=== PATIENT | female | born 1945 | race Caucasian/White ===

== ENCOUNTER 2017-09-11 07:52 | Emergency (ER) | payer MEDICARE, OTHER ==
[2017-09-11] MEDS ORDERED: methylPREDNISolone Sodium Succinate 125 MG/2 ML SDV IVPUSH ONE (08:14)
[2017-09-11] MEDS ORDERED: diphenhydrAMINE 50 MG/ML SDV IVPUSH ONE (08:14)
[2017-09-11] MEDS ORDERED: Sodium Chloride 0.9% 1,000 ML IV SCH (08:15)
[2017-09-11] MEDS ORDERED: EPINEPHrine 1 MG/ML SDV SUBCUT ONE ×2 (08:20→10:19)
--- NOTE | 2017-09-11 08:20 | EDM.PDOC ---
ED HPI GENERAL MEDICAL PROBLEM - General Chief Complaint: Allergic Reaction Stated Complaint: REACTION TO MEDS Time Seen by Provider: 09/11/17 08:18 Source of Information: Reports: Patient History Limitations: Reports: No Limitations - History of Present Illness INITIAL COMMENTS - FREE TEXT/NARRATIVE: Pt was seen 3 days ago and she had no idea at that time what she reacted to. She broke in hives and she was placed on predisone. She has had 3\3 doses of the predisone and she woke up with swelling in her throat, swelling in her upper lip and generalized hives. Onset: Other ( started 3 days ago. ) Duration: Hour(s):, Waxing/Waning Location: Reports: Generalized Associated Symptoms: Reports: Shortness of Breath - Related Data Allergies Allergy/AdvReac Type Severity Reaction Status Date / Time Iodinated Contrast- Oral and Allergy Severe Anaphylactic Verified 09/11/17 08:05 IV Dye Shock [Iodinated Contrast Media - IV Dye] alcohol Allergy Cannot Verified 09/11/17 08:05 Remember aspirin Allergy Cannot Verified 09/11/17 08:05 Remember demeclocycline HCl Allergy Rash Verified 09/11/17 08:05 [From Declomycin] hydrochlorothiazide Allergy Cannot Verified 09/11/17 08:05 Remember Penicillins Allergy Rash Verified 09/11/17 08:05 Sulfa (Sulfonamide Allergy Rash Verified 09/11/17 08:05 Antibiotics) tetracycline Allergy Rash Verified 09/11/17 08:05 triamterene Allergy Cannot Verified 09/11/17 08:05 Remember adhesive AdvReac Blisters Verified 09/11/17 08:05 Home Meds: Home Meds Multivitamin with Minerals [Multiple Vitamin] 1 tab PO DAILY 12/17/14 [History] amLODIPine [Norvasc] 1 tab PO DAILY 09/11/17 [History] predniSONE 2 tab PO DAILY 09/11/17 [History] ED ROS ALLERGIC REACTION - Review of Systems Review Of Systems: See Below Constitutional: Reports: No Symptoms HEENT: Reports: Throat Swelling, Other ( swelling of the tongue. ) Cardiovascular: Reports: No Symptoms Endocrine: Reports: No Symptoms GI/Abdominal: Reports: No Symptoms : Reports: No Symptoms Musculoskeletal: Reports: No Symptoms Skin: Reports: Rash, Other ( pt has hives over her entire body. ) Neurological: Reports: No Symptoms ED EXAM GENERAL NO PERIP PULSE - Physical Exam Exam: See Below Text/Narrative:: pt started having hives 2 days ago. She was placed on predisone and today she was much worse. She had alot of swelling in her upper lip aand swelling of her tongue, She had swelling and edemaa in the tonsilar area. She has no new meds. She does not know of any new contacts. Exam Limited By: No Limitations General Appearance: Alert, Moderate Distress, Other (pupils are equal and reactive. ) Ears: Normal TMs Nose: Normal Inspection Throat/Mouth: Other (upper lip is quite swollen, tongue is swollen, and there is edema in\ the back of her throat. ) Head: Atraumatic Neck: Normal Inspection Respiratory/Chest: No Respiratory Distress, Other ( She did feel quite tight in the throat) Cardiovascular: Regular Rate, Rhythm GI/Abdominal: Soft, Non-Tender (Female) Exam: Deferred Rectal (Female) Exam: Deferred Back Exam: Normal Inspection Extremities: Normal Inspection Neurological: Alert, Oriented, Normal Cognition Psychiatric: Normal Affect Skin Exam: Rash, Other ( pt has hives everywhere) Course - Vital Signs Last Recorded V/S: Last Vital Signs Temp 36.1 C 09/11/17 09:05 Pulse 68 09/11/17 12:13 Resp 12 09/11/17 12:13 BP 150/71 H 09/11/17 12:13 Pulse Ox 94 L 09/11/17 12:13 - Orders/Labs/Meds Orders: Active Orders 24 hr Category Date Time Status UA W/MICROSCOPIC [URIN] Urgent Lab 09/11/17 09:42 Ordered Sodium Chloride 0.9% [Normal Saline] 1,000 ml Med 09/11/17 08:15 Active IV ASDIRECTED Medication Orders Sodium Chloride (Normal Saline) 1,000 mls @ 999 mls/hr IV ASDIRECTED LATISHA Last Admin: 09/11/17 08:47 Dose: 999 mls/hr Labs: Laboratory Tests 09/11/17 09/11/17 09/11/17 Range/Units 08:17 08:33 09:42 WBC 17.1 H (4.5-11.0) K/uL RBC 4.71 (3.30-5.50) M/uL Hgb 14.6 (12.0-15.0) g/dL Hct 42.7 (36.0-48.0) % MCV 91 (80-98) fL MCH 31 (27-31) pg MCHC 34 (32-36) % Plt Count 273 (150-400) K/uL Neut % (Auto) 77 H (36-66) % Lymph % (Auto) 16 L (24-44) % Hayes % (Auto) 7 H (2-6) % Eos % (Auto) 0 L (2-4) % Baso % (Auto) 0 (0-1) % Sodium 142 (140-148) mmol/L Potassium 3.4 L (3.6-5.2) mmol/L Chloride 105 (100-108) mmol/L Carbon Dioxide 26 (21-32) mmol/L Anion Gap 14.4 H (5.0-14.0) mmol/L BUN 25 H (7-18) mg/dL Creatinine 1.0 (0.6-1.0) mg/dL Est Cr Clr Drug Dosing 39.93 mL/min Estimated GFR (MDRD) 54 L (>60) Glucose 97 (74-106) mg/dL Calcium 8.4 L (8.5-10.1) mg/dL Total Bilirubin 0.6 (0.2-1.0) mg/dL AST 22 (15-37) U/L ALT 34 (12-78) U/L Alkaline Phosphatase 100 (46-116) U/L Total Protein 6.5 (6.4-8.2) g/dL Albumin 3.3 L (3.4-5.0) g/dL Globulin 3.2 (2.3-3.5) g/dL Albumin/Globulin Ratio 1.0 L (1.2-2.2) Urine Color Yellow Urine Appearance Clear Urine pH 5.0 (4.5-8.0) Ur Specific [place] 1.010 (1.008-1.030) Urine Protein Negative (NEGATIVE) mg/dL Urine Glucose (UA) Normal (NEGATIVE) mg/dL Urine Ketones Negative (NEGATIVE) mg/dL Urine Occult Blood Negative (NEGATIVE) Urine Nitrite Negative (NEGATIVE) Urine Bilirubin Negative (NEGATIVE) Urine Urobilinogen Normal (NORMAL) mg/dL Ur Leukocyte Esterase Negative (NEGATIVE) Urine RBC Not seen (0-5) Urine WBC Not seen (0-5) Ur Epithelial Cells Rare Amorphous Sediment Not seen Urine Bacteria Not seen Urine Mucus Not seen Meds: Medications Generic Name Dose Route Start Last Admin Trade Name Brad PRN Reason Stop Dose Admin Sodium Chloride 1,000 mls @ 999 mls/hr 09/11/17 08:15 09/11/17 08:47 Normal Saline IV 999 mls/hr ASDIRECTED LATISHA Administration Discontinued Medications Generic Name Dose Route Start Last Admin Trade Name Brad PRN Reason Stop Dose Admin Diphenhydramine HCl 25 mg 09/11/17 08:14 09/11/17 08:36 Benadryl IVPUSH 09/11/17 08:15 25 mg ONETIME ONE Administration Diphenhydramine HCl 25 mg 09/11/17 09:30 09/11/17 09:29 Benadryl PO 09/11/17 09:31 25 mg ONETIME ONE Administration Epinephrine HCl 0.2 mg 09/11/17 08:20 09/11/17 08:40 Adrenalin SUBCUT 09/11/17 08:21 0.2 mg ONETIME ONE Administration Epinephrine HCl 0.2 mg 09/11/17 10:19 09/11/17 10:28 Adrenalin SUBCUT 09/11/17 10:20 0.2 mg ONETIME ONE Administration Labetalol HCl 20 mg 09/11/17 09:14 09/11/17 09:29 Normodyne IVPUSH 09/11/17 09:15 20 mg NOW ONE Administration Protocol Methylprednisolone Sodium Succinate 125 mg 09/11/17 08:14 09/11/17 08:36 Solu-Medrol IVPUSH 09/11/17 08:15 125 mg ONETIME ONE Administration - Re-Assessments/Exams Free Text/Narrative Re-Assessment/Exam: 09/11/17 11:49 pt was given epi .2 x two. She was given solumedrol 125 mg iv. a total of benadryl 50mg. She is doing better. The tongue swelling is going down as the swelling in the upper lip is going down. \I feel there is a good possibility that she has developed the angioedea related to the amlodopine 09/11/17 12:41 Departure - Departure Time of Disposition: 12:37 Disposition: Home, Self-Care 01 Condition: Fair Clinical Impression: Allergic reaction caused by a drug - Discharge Information Referrals: Adeel Alarcon MD [Primary Care Provider] - Forms: ED Department Discharge Care Plan Goals: stop the amlodopine, cool pack\ lip area, benadryl 50mg q8h for the next 2 days, labetolol 100mg 1 tab daily, follow up appt with Dr Alarcon. predisone 20g 2 tabs for the next 2 days then 10ng 2 tabs daily for 2 more days. - My Orders Last 24 Hours: My Active Orders 09/11/17 08:15 Sodium Chloride 0.9% [Normal Saline] 1,000 ml IV ASDIRECTED 09/11/17 09:42 UA W/MICROSCOPIC [URIN] Urgent - Assessment/Plan Last 24 Hours: My Active Orders 09/11/17 08:15 Sodium Chloride 0.9% [Normal Saline] 1,000 ml IV ASDIRECTED 09/11/17 09:42 UA W/MICROSCOPIC [URIN] Urgent
[2017-09-11] MEDS ORDERED: diphenhydrAMINE 25 MG Cap PO ONE (09:13)
[2017-09-11] MEDS ORDERED: Labetalol 20 MG/4 ML Syringe IVPUSH ONE (09:14)
[2017-09-11] MEDS ORDERED: diphenhydrAMINE 25 MG/10 ML CUP PO ONE (09:30)
[2017-09-11 12:13] VITALS: BP 150/71
== END 2017-09-11 12:57 | disposition home or self-care (01) ==
LOC: JP.ED 07:52
DX: L50.0 Allergic urticaria (principal); T38.0X5A Adverse effect of glucocorticoids and synthetic analogues, initial encounter; Z91.041 Radiographic dye allergy status; Z88.6 Allergy status to analgesic agent; Z88.1 Allergy status to other antibiotic agents; Z88.0 Allergy status to penicillin; Z88.2 Allergy status to sulfonamides
CPT/HCPCS: 36415; 80053; 81001; 85025; 96361; 96372; 96374; 96375; 99285; A9270; J0171; J1200; J2930; J7030

== ENCOUNTER 2017-09-11 20:34 | Emergency (ER) | payer MEDICARE, OTHER ==
[2017-09-11] MEDS ORDERED: Sodium Chloride 0.9% 10 ML Syringe FLUSH PRN (21:12)
--- NOTE | 2017-09-11 21:17 | EDM.PDOC ---
ED HPI GENERAL MEDICAL PROBLEM - General Chief Complaint: Neurological Problem Stated Complaint: MED [facility] Time Seen by Provider: 09/11/17 21:05 Source of Information: Reports: Patient, EMS, Old Records, RN History Limitations: Reports: No Limitations - History of Present Illness INITIAL COMMENTS - FREE TEXT/NARRATIVE: 72 yo female presents via EMS after what sounds like a TIA. She has R sided weakness and says she really wasn't aware of where her R arm/hand were. Bystanders noted slurred speech. Was unable to intiate steps to walk. By the time EMS arrived these sx's were resolved. She has no hx of TIA or CVA. She reports allergy to ASA. Quit smoking 20 yrs ago. No hx of afib. Was here this morning for allergic rxn and had her BP med changed from amlodipine to labetolol and she was given prednisone. Her BP is usually in the 120's. Recalls no chest pain or other pains with her spell tonight. Onset: Today, Sudden Onset Date: 09/11/17 Onset Time: 20:30 Duration: Minutes: (5-10), Resolved Prior to Arrival Location: Reports: Head (altered speech), Upper Extremity, Right, Lower Extremity, Right Quality: Reports: Other (no pain) Severity: Moderate Improves with: Reports: Other (time) Worsens with: Reports: Other (unknown, BP elevated now from her norm. 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) (none) - Related Data Allergies Allergy/AdvReac Type Severity Reaction Status Date / Time Iodinated Contrast- Oral and Allergy Severe Anaphylactic Verified 09/11/17 20:52 IV Dye Shock [Iodinated Contrast Media - IV Dye] alcohol Allergy Cannot Verified 09/11/17 20:52 Remember amlodipine Allergy Facial Verified 09/11/17 20:52 Swelling aspirin Allergy Cannot Verified 09/11/17 20:52 Remember demeclocycline HCl Allergy Rash Verified 09/11/17 20:52 [From Declomycin] hydrochlorothiazide Allergy Cannot Verified 09/11/17 20:52 Remember Penicillins Allergy Rash Verified 09/11/17 20:52 Sulfa (Sulfonamide Allergy Rash Verified 09/11/17 20:52 Antibiotics) tetracycline Allergy Rash Verified 09/11/17 20:52 triamterene Allergy Cannot Verified 09/11/17 20:52 Remember adhesive AdvReac Blisters Verified 09/11/17 20:52 Home Meds: Home Meds Multivitamin with Minerals [Multiple Vitamin] 1 tab PO DAILY 12/17/14 [History] Clopidogrel Bisulfate [Plavix] 75 mg PO DAILY #30 tablet 09/11/17 [Rx] Labetalol [Normodyne] 09/11/17 [History] predniSONE 2 tab PO DAILY 09/11/17 [History] predniSONE [Prednisone] 09/11/17 [History] Past Medical History Cardiovascular History: Reports: Hypertension Respiratory History: Reports: Pneumonia, Recurrent Gastrointestinal History: Reports: Cholelithiasis 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: Musculoskeletal History: Reports: Fracture Dermatologic History: Reports: Other (See Below) Other Dermatologic History: rashes and hives from multiple allergies - Infectious Disease History Infectious Disease History: Reports: Chicken Pox, Hepatitis B, Measles, Mumps, Rubella - Past Surgical History GI Surgical History: Reports: Cholecystectomy Female Surgical History: Reports: Hysterectomy Social & Family History - Tobacco Use Smoking Status *Q: Never Smoker - Caffeine Use Caffeine Use: Reports: Coffee ED ROS GENERAL - Review of Systems Review Of Systems: See Below Constitutional: Reports: No Symptoms HEENT: Reports: No Symptoms Respiratory: Reports: No Symptoms Cardiovascular: Reports: No Symptoms Endocrine: Reports: No Symptoms GI/Abdominal: Reports: No Symptoms : Reports: No Symptoms Musculoskeletal: Reports: No Symptoms Skin: Reports: No Symptoms Neurological: Reports: Trouble Speaking, Difficulty Walking, Weakness (R sided) , Change in Speech, Gait Disturbance (unable to initiate walking) Psychiatric: Reports: No Symptoms ED EXAM, NEURO - Physical Exam Exam: See Below Exam Limited By: No Limitations General Appearance: Alert, WD/WN, No Apparent Distress Eye Exam: Right Eye: Papilledema, Bilateral Eye: EOMI, Normal Inspection, PERRL Ears: Normal External Exam, Normal Canal, Hearing Grossly Normal, Normal TMs Nose: Normal Inspection, Normal Mucosa, No Blood Throat/Mouth: Normal Inspection, Normal Lips, Normal Oropharynx, Normal Voice, No Airway Compromise Head Exam: Atraumatic, Normocephalic Neck: Normal Inspection, Supple, Non-Tender, Other (No bruits) Respiratory/Chest: No Respiratory Distress, Lungs Clear, Normal Breath Sounds, No Accessory Muscle Use Cardiovascular: Regular Rate, Rhythm, No Edema GI/Abdominal: Normal Bowel Sounds, Soft, Non-Tender, No Distention Neurological: Alert, Normal Mood/Affect, Normal Dorsiflexion, CN II-XII Intact, Normal Reflexes, No Motor/Sensory Deficits, Oriented x 3. No: Ataxia, Babinski Back Exam: Normal Inspection, Full Range of Motion. No: CVA Tenderness (R), CVA Tenderness (L) Extremities: Normal Inspection, Normal Range of Motion, Non-Tender, No Pedal Edema Psychiatric: Normal Affect, Normal Mood Skin Exam: Warm, Dry, Intact, Normal Color, No Rash Course - Vital Signs Text/Narrative:: Discussed with Dr. Valle of [facility] Neurology @ 2220h Last Recorded V/S: Last Vital Signs Temp 36.6 C 09/11/17 20:36 Pulse 67 09/11/17 22:11 Resp 18 09/11/17 22:11 BP 144/65 H 09/11/17 22:11 Pulse Ox 95 09/11/17 22:11 - Orders/Labs/Meds Orders: Active Orders 24 hr Category Date Time Status Cardiac Monitoring [RC] .As Directed Care 09/11/17 21:05 Active Head wo Cont [CT] Stat Exams 09/11/17 21:11 Taken Lactated Ringers [Ringers, Lactated] 1,000 ml Med 09/11/17 21:58 Active IV BOLUS Sodium Chloride 0.9% [Saline Flush] Med 09/11/17 21:12 Active 10 ml FLUSH ASDIRECTED PRN Saline Lock Insert [OM.PC] Routine Oth 09/11/17 21:12 Ordered Medication Orders Lactated Ringer's (Ringers, Lactated) 1,000 mls @ 1,000 mls/hr IV BOLUS ONE Stop: 09/11/17 22:57 Last Admin: 09/11/17 22:11 Dose: 1,000 mls/hr Sodium Chloride (Saline Flush) 10 ml FLUSH ASDIRECTED PRN PRN Reason: Keep Vein Open Last Admin: 09/11/17 21:48 Dose: 10 ml Labs: Laboratory Tests 09/11/17 09/11/17 Range/Units 21:11 21:11 WBC 12.4 H (4.5-11.0) K/uL RBC 4.38 (3.30-5.50) M/uL Hgb 13.4 (12.0-15.0) g/dL Hct 39.8 (36.0-48.0) % MCV 91 (80-98) fL MCH 31 (27-31) pg MCHC 34 (32-36) % Plt Count 251 (150-400) K/uL Sodium 141 (140-148) mmol/L Potassium 4.1 (3.6-5.2) mmol/L Chloride 106 (100-108) mmol/L Carbon Dioxide 23 (21-32) mmol/L Anion Gap 12.3 (5.0-14.0) mmol/L BUN 30 H (7-18) mg/dL Creatinine 1.3 H (0.6-1.0) mg/dL Est Cr Clr Drug Dosing 30.72 mL/min Estimated GFR (MDRD) 40 L (>60) Glucose 137 H (74-106) mg/dL Calcium 7.9 L (8.5-10.1) mg/dL Troponin I < 0.017 (0.000-0.056) ng/mL Meds: Medications Generic Name Dose Route Start Last Admin Trade Name Freq PRN Reason Stop Dose Admin Lactated Ringer's 1,000 mls @ 1,000 mls/hr 09/11/17 21:58 09/11/17 22:11 Ringers, Lactated IV 09/11/17 22:57 1,000 mls/hr BOLUS ONE Administration Sodium Chloride 10 ml 09/11/17 21:12 09/11/17 21:48 Saline Flush FLUSH 10 ml ASDIRECTED PRN Administration Keep Vein Open Discontinued Medications Generic Name Dose Route Start Last Admin Trade Name Freq PRN Reason Stop Dose Admin Clopidogrel Bisulfate 600 mg 09/11/17 22:22 09/11/17 22:30 Plavix PO 09/11/17 22:23 600 mg ONETIME ONE Administration - Radiology Interpretation Free Text/Narrative:: Negative Head CT CT Results Date: 09/11/17 CT Results Time: 22:10 Departure - Departure Time of Disposition: 23:00 Disposition: Home, Self-Care 01 Condition: Fair Clinical Impression: TIA (transient ischemic attack) Qualifiers: Transient cerebral ischemia type: carotid artery syndrome (hemispheric) Qualified Code(s): G45.1 - Carotid artery syndrome (hemispheric) - Discharge Information Prescriptions: Clopidogrel Bisulfate [Plavix] 75 mg PO DAILY #30 tablet Referrals: PCP,None [Primary Care Provider] - Forms: ED Department Discharge - My Orders Last 24 Hours: My Active Orders 09/11/17 21:05 Cardiac Monitoring [RC] .As Directed 09/11/17 21:11 Head wo Cont [CT] Stat 09/11/17 21:12 Sodium Chloride 0.9% [Saline Flush] 10 ml FLUSH ASDIRECTED PRN Saline Lock Insert [OM.PC] Routine 09/11/17 21:58 Lactated Ringers [Ringers, Lactated] 1,000 ml IV BOLUS - Assessment/Plan Last 24 Hours: My Active Orders 09/11/17 21:05 Cardiac Monitoring [RC] .As Directed 09/11/17 21:11 Head wo Cont [CT] Stat 09/11/17 21:12 Sodium Chloride 0.9% [Saline Flush] 10 ml FLUSH ASDIRECTED PRN Saline Lock Insert [OM.PC] Routine 09/11/17 21:58 Lactated Ringers [Ringers, Lactated] 1,000 ml IV BOLUS
[2017-09-11] MEDS ORDERED: Lactated Ringers 1,000 ML IV ONE (21:58)
[2017-09-11 22:12] VITALS: BP 144/65
[2017-09-11] MEDS ORDERED: Clopidogrel 75 MG Tab PO ONE (22:22)
== END 2017-09-11 23:16 | disposition home or self-care (01) ==
LOC: JP.ED 20:34
DX: G45.1 Carotid artery syndrome (hemispheric) (principal); I10 Essential (primary) hypertension; Z91.041 Radiographic dye allergy status; Z88.6 Allergy status to analgesic agent; Z88.2 Allergy status to sulfonamides; Z88.1 Allergy status to other antibiotic agents; Z88.8 Allergy status to other drugs, medicaments and biological substances; Z91.048 Other nonmedicinal substance allergy status; Z79.899 Other long term (current) drug therapy; L50.0 Allergic urticaria; T38.0X5A Adverse effect of glucocorticoids and synthetic analogues, initial encounter; Z88.0 Allergy status to penicillin
CPT/HCPCS: 36415; 70450; 80048; 80053; 81001; 84484; 85025; 85027; 96360; 96361; 96372; 96374; 96375; 99284; 99285; A9270; J0171; J1200; J2930; J7030; J7050; J7120